=== PATIENT | male | born 1955 | race Caucasian/White ===

== ENCOUNTER 2019-04-11 08:49 | Inpatient (IN) ==
[2019-04-11] MEDS ORDERED: *HR* Promethazine 25 MG/ML VIAL IVP PRN (09:05)
[2019-04-11] MEDS ORDERED: *HR* HYDROmorphone (PF) 1 MG/ML SYRINGE IVP PRN (09:05)
[2019-04-11] MEDS ORDERED: *HR* OxyCODONE Immed Rel 5 MG TABLET PO PRN ×2 (09:05→13:56)
[2019-04-11] MEDS ORDERED: Ondansetron 4 MG/2 ML VIAL IVP ONE (09:05)
[2019-04-11] MEDS ORDERED: Clindamycin 900 MG/50 ML 900 MG/50 ML IV.SOLN IVPB ONE (09:10)
[2019-04-11] MEDS ORDERED: Ringers Solution, Lactated 1,000 ML IVC SCH ×2 (09:15→13:56)
[2019-04-11] MEDS ORDERED: *HR* Midazolam HCl 2 MG/2 ML VIAL ONE (09:29)
[2019-04-11] MEDS ORDERED: Dexamethasone 4 MG/ML VIAL ONE (09:29)
[2019-04-11] MEDS ORDERED: *HR* Succinylcholine 200 MG/10 ML VIAL IVP ONE ×2 (09:29→11:48)
[2019-04-11] MEDS ORDERED: Ondansetron 4 MG/2 ML VIAL ONE (09:29)
[2019-04-11] MEDS ORDERED: Lidocaine -MPF 4% 5 ML AMPUL ONE (09:29)
[2019-04-11] MEDS ORDERED: Lidocaine -MPF 2% 2 ML VIAL ONE (09:29)
[2019-04-11] MEDS ORDERED: *HR* FentaNYL (PF) 100 MCG/2 ML VIAL ONE ×2 (09:36→10:33)
[2019-04-11] MEDS ORDERED: *HR* PHENYLEPHRINE 1,000 MCG/10 ML SYRINGE IVP ONE ×2 (10:39→12:16)
[2019-04-11] MEDS ORDERED: ROPIVACAINE/PF/NS 0.25% 1 EACH SYRINGE INTRAART ONE (11:15)
[2019-04-11] MEDS ORDERED: Ropivacaine/PF 0.5% 30 ML VIAL ONE (11:15)
[2019-04-11] MEDS ORDERED: Ethanol\\Acetic Acid\\Na Ace\\Ben 1,000 ML IRRIG.SOLN IR ONE (11:30)
[2019-04-11] MEDS ORDERED: EPHEDrine 50 MG/ML VIAL ONE (12:01)
[2019-04-11 13:31] LABS: Hematocrit 41.9 % (37.5-50.1); Hemoglobin 14.3 g/dL (12.9-16.9)
[2019-04-11] MEDS ORDERED: Sennosides 8.6 MG TABLET PO PRN (13:56)
[2019-04-11] MEDS ORDERED: Naloxone 0.4 MG/ML INJ IVP PRN (13:56)
[2019-04-11] MEDS ORDERED: Temazepam 15 MG CAPSULE PO PRN (13:56)
[2019-04-11] MEDS ORDERED: *HR* OxyCODONE/APAP 5/325 TABLET PO PRN (13:56)
[2019-04-11] MEDS ORDERED: traMADol 50 MG TABLET PO PRN (13:56)
[2019-04-11] MEDS ORDERED: MOM Conc 10 ML UD.LIQ PO PRN (13:56)
[2019-04-11] MEDS ORDERED: Ondansetron 4 MG/2 ML VIAL IVP PRN (13:56)
[2019-04-11] MEDS ORDERED: *HR* Propofol 200 MG/20 ML VIAL IVP ONE (14:07)
[2019-04-11] MEDS ORDERED: Clindamycin 900 MG/50 ML 900 MG/50 ML IV.SOLN IVPB SCH (16:00)
[2019-04-11 16:24] VITALS: BP 120/71
[2019-04-11] MEDS ORDERED: Multivit/Ca/Min/Fe/FA 1 TAB TABLET PO SCH (18:00)
[2019-04-11] MEDS ORDERED: *HR* Enoxaparin 30 MG/0.3 ML SYRINGE SQ SCH ×2 (18:00)
== END 2019-04-11 19:05 | disposition home or self-care (01) | DRG 483 ==
LOC: SAMDAY 08:49 → 3NENU 13:37
PROVIDERS: ADMIT Orthopaedic Surgery; ATTEND Orthopaedic Surgery